=== PATIENT | male | born 1935 | race Asian ===

== ENCOUNTER → 2017-12-22 | Outpatient (CLI) | payer MEDICARE ==
[~2017-12-22] MED LIST: APIX5TAB PO; DIGO250T PO; HYDR1POW19 PO; LISI-420 PO; METO50TA6 PO
== END | disposition home or self-care (01) ==
LOC: CFH 14:05
PROVIDERS: ATTEND Internal Medicine Cardiovascular Disease
DX: I10 Essential (primary) hypertension (principal); I35.8 Other nonrheumatic aortic valve disorders
CPT/HCPCS: 93306

== ENCOUNTER 2018-01-06 16:37 | Emergency (ER) | payer MEDICARE ==
[~2018-01-06] VITALS: Ht 162.6 cm; Wt 53.0 kg
[2018-01-06 19:19] LABS: BASOPHILS # (AUTO) 0.02 x10^3/uL (0-0.1); BASOPHILS % (AUTO) 0 % (0-1); EOSINOPHILS # (AUTO) 0.83 x10^3/uL (0-0.4); EOSINOPHILS % (AUTO) 10 % (1-7); LYMPHOCYTES # (AUTO) 0.77 x10^3/uL (1-3.4); LYMPHOCYTES % (AUTO) 9 % (22-44); MD NO; MEAN CORPUSCULAR HEMOGLOBIN 31.6 pg (27.5-34.5); MEAN CORPUSCULAR HGB CONC 33.5 g/dL (33.2-36.2); MEAN CORPUSCULAR VOLUME 94.1 fL (81-97); MEAN PLATELET VOLUME 6.9 fL (7.4-10.4); MONOCYTES # (AUTO) 0.77 x10^3/uL (0.2-0.8); MONOCYTES % (AUTO) 9 % (2-9); NEUTROPHILS # (AUTO) 6.31 x10^3/uL (1.8-6.8); NEUTROPHILS % (AUTO) 73 % (42-75); PLATELET COUNT 250 x10^3/uL (130-400); RED BLOOD COUNT 4.79 x10^6/uL (4.38-5.82)
[2018-01-06 19:31] LABS: ALANINE AMINOTRANSFERASE 25 U/L (12-78); ALBUMIN 2.5 g/dL (3.4-5.0); ANION GAP 10 mmol/L (5-15); CALCIUM 8.2 mg/dL (8.5-10.1); CHLORIDE 105 mmol/L (98-107); CREATININE 1.66 mg/dL (0.7-1.3)
[2018-01-06 19:33] LABS: ALKALINE PHOSPHATASE 44 U/L (45-117); BILIRUBIN,TOTAL 0.3 mg/dL (0.2-1.0); TOTAL PROTEIN 5.3 g/dL (6.4-8.2)
[2018-01-06 20:35] LABS: MICROSCOPIC INDICATED
[2018-01-06 20:38] LABS: CULTURE INDICATED? YES
[2018-01-06 21:52] VITALS: BP 131/48
== END 2018-01-06 21:54 | disposition home or self-care (01) ==
LOC: ED 20:19
DX: R60.0 Localized edema (principal); L30.8 Other specified dermatitis; I10 Essential (primary) hypertension; I48.91 Unspecified atrial fibrillation
CPT/HCPCS: 36415; 71045; 80053; 81001; 83880; 84145; 85025; 87086; 93005; 99285

== ENCOUNTER → 2018-01-27 | Outpatient (CLI) | payer MEDICARE ==
[~2018-01-27] MED LIST changes: +ASPI-650 PO; +BETA15CR5 TD; +CEFD300C37 PO; +DOXY100T PO; +FURO20TA3 PO; +HYDR-3342 PO; +LISI40TA PO; +METO25TA35 PO; +POTA20TA6 PO; +PRED10TA14 PO
[2018-01-27 15:59] LABS: ALANINE AMINOTRANSFERASE 32 U/L (12-78); ALBUMIN 2.3 g/dL (3.4-5.0); ANION GAP 7 mmol/L (5-15); CALCIUM 7.6 mg/dL (8.5-10.1); CHLORIDE 109 mmol/L (98-107); CREATININE 1.22 mg/dL (0.7-1.3)
[2018-01-27 16:00] LABS: MEAN CORPUSCULAR HEMOGLOBIN 30.7 pg (27.5-34.5); MEAN CORPUSCULAR HGB CONC 33.1 g/dL (33.2-36.2); MEAN CORPUSCULAR VOLUME 92.9 fL (81-97); MEAN PLATELET VOLUME 7.3 fL (7.4-10.4); PLATELET COUNT 289 x10^3/uL (130-400); RED BLOOD COUNT 3.84 x10^6/uL (4.38-5.82); RED CELL DISTRIBUTION WIDTH 13.8 % (9.4-14.8)
[2018-01-27 16:01] LABS: ALKALINE PHOSPHATASE 48 U/L (45-117); BILIRUBIN,TOTAL 0.3 mg/dL (0.2-1.0); TOTAL PROTEIN 5.2 g/dL (6.4-8.2)
[2018-01-27 16:04] LABS: CREATININE 1.22 mg/dL (0.7-1.3)
[2018-01-27 16:46] LABS: MD YES
[2018-01-27 16:50] LABS: <PLATELET ESTIMATE> ADEQUATE; <RBC MORPHOLOGY> NORMAL; EOS#(MANUAL) 2.52 x10^3/uL (0.0-0.4); EOS% (MANUAL) 28 % (1-7); LYMPH#(MANUAL) 1.26 x10^3/uL (1-3.4); LYMPHS% (MANUAL) 14 % (22-44); MONOS#(MANUAL) 0.36 x10^3/uL (0.3-2.7); MONOS% (MANUAL) 4 % (2-9); SEG#(MANUAL) 4.86 x10^3/uL (1.8-6.8); SEGS% (MANUAL) 54 % (42-75)
[2018-01-27 16:51] LABS: <PLT MORPHOLOGY> NORMAL PLT MORPH
== END | disposition home or self-care (01) ==
LOC: LAB 15:16
PROVIDERS: ATTEND Dermatology
DX: L53.8 Other specified erythematous conditions (principal)
CPT/HCPCS: 36415; 80053; 82565; 85025

== ENCOUNTER 2018-01-30 09:26 | Inpatient (IN) | payer MEDICARE ==
[~2018-01-30] VITALS: Ht 162.6 cm; Wt 57.4 kg
[~2018-01-30 09:26] MED LIST changes: -ASPI-650 PO; -BETA15CR5 TD; -CEFD300C37 PO; -DOXY100T PO; -FURO20TA3 PO; -HYDR-3342 PO; -LISI40TA PO; -METO25TA35 PO; -POTA20TA6 PO; -PRED10TA14 PO
[2018-01-30] MEDS ORDERED: SODIUM CHLORIDE FLUSH 10ML SYR IVF ONE (09:30)
[2018-01-30] MEDS: NITROGLYCERIN/D5W PMX 250 ML IV SCH (09:48)
[2018-01-30] MEDS ORDERED: NITROGLYCERIN SINGLE TAB 0.4 MG SL ONE (09:53)
[2018-01-30] MEDS ORDERED: PLEASE ENTER HEIGHT AND WEIGHT MC SCH (10:00)
[2018-01-30] MEDS ORDERED: NITROGLYCERIN SINGLE TAB 0.4 MG SL PRN (10:00)
[2018-01-30 10:07] LABS: MEAN CORPUSCULAR HEMOGLOBIN 30.7 pg (27.5-34.5); MEAN CORPUSCULAR HGB CONC 33.4 g/dL (33.2-36.2); MEAN CORPUSCULAR VOLUME 91.8 fL (81-97); MEAN PLATELET VOLUME 7.4 fL (7.4-10.4); PLATELET COUNT 319 x10^3/uL (130-400); RED BLOOD COUNT 3.85 x10^6/uL (4.38-5.82); RED CELL DISTRIBUTION WIDTH 14.2 % (9.4-14.8)
[2018-01-30] MEDS ORDERED: NITROGLYCERIN/D5W PMX 250 ML ONE (10:12)
[2018-01-30 10:14] LABS: INTERNATIONAL NORMALIZED RATIO 1.01 (0.93-1.1); PROTHROMBIN TIME 10.5 Seconds (9.6-11.5)
[2018-01-30 10:16] LABS: ALANINE AMINOTRANSFERASE 96 U/L (12-78); ALBUMIN 2.8 g/dL (3.4-5.0); ANION GAP 8 mmol/L (5-15); CALCIUM 8.1 mg/dL (8.5-10.1); CHLORIDE 103 mmol/L (98-107); CREATININE 1.31 mg/dL (0.7-1.3)
[2018-01-30 10:20] LABS: ALKALINE PHOSPHATASE 69 U/L (45-117); BILIRUBIN,TOTAL 0.3 mg/dL (0.2-1.0); TOTAL PROTEIN 6.1 g/dL (6.4-8.2); TROPONIN I 0.043 ng/mL (0.000-0.045)
[2018-01-30 10:21] LABS: BASOPHILS # (AUTO) 0.03 x10^3/uL (0-0.1); BASOPHILS % (AUTO) 0 % (0-1); EOSINOPHILS # (AUTO) 0.08 x10^3/uL (0-0.4); EOSINOPHILS % (AUTO) 1 % (1-7); LYMPHOCYTES # (AUTO) 2.53 x10^3/uL (1-3.4); LYMPHOCYTES % (AUTO) 19 % (22-44); MD SCAN; MONOCYTES % (AUTO) 12 % (2-9); NEUTROPHILS # (AUTO) 9.07 x10^3/uL (1.8-6.8); NEUTROPHILS % (AUTO) 68 % (42-75)
[2018-01-30] MEDS ORDERED: FUROSEMIDE 40 MG/4 ML ONE (11:28)
[2018-01-30] MEDS ORDERED: FUROSEMIDE 40 MG/4 ML IV ONE (11:30)
[2018-01-30] MEDS ORDERED: HYDR-3342 PO (11:43)
[2018-01-30] MEDS ORDERED: ASPI-650 PO (11:43)
[2018-01-30] MEDS ORDERED: NITROGLYCERIN OINT 2%, 1GM TP ONE ×2 (11:53→12:00)
[2018-01-30] MEDS ORDERED: PRED10TA14 PO (12:26)
[2018-01-30] MEDS ORDERED: METO25TA35 PO (12:26)
[2018-01-30] MEDS ORDERED: LISI40TA PO (12:26)
[2018-01-30] MEDS ORDERED: ACETAMINOPHEN 325 MG TABLET PO PRN (12:30)
[2018-01-30] MEDS ORDERED: ONDANSETRON 2MG/ML, 2ML IVPush PRN (12:30)
[2018-01-30] MEDS ORDERED: LABETALOL 5MG/ML, 20ML IVPush PRN (12:30)
[2018-01-30] MEDS ORDERED: TEMPLATE NON-FORMULARY MED. (Prednisone** 10 MG) PO SCH (13:00)
[2018-01-30] MEDS ORDERED: OMNIPAQUE 350 MG/ML, 100ML BOTTLE ONE (13:27)
[2018-01-30] MEDS ORDERED: PREDNISONE TAPER MC SCH (14:00)
[2018-01-30 14:26] VITALS: BP 161/70
[2018-01-30] MEDS ORDERED: BETA15CR5 TD (14:39)
[2018-01-30] MEDS ORDERED: prednisOLONE 15 MG/5 ML ORAL SOLN PO ONE (15:00)
[2018-01-30] MEDS: CEFTRIAXONE 1,000 MG in SODIUM CHLORIDE 0.9% 50 ML IV SCH (15:06)
[2018-01-30] MEDS: METOPROLOL TARTRATE 25 MG TABLET PO SCH ×2 (15:15→20:56)
[2018-01-30] MEDS: LISINOPRIL 20 MG TABLET PO SCH ×2 (15:16→20:56)
[2018-01-30] MEDS: HEPARIN 5,000 UNITS/ML, 1ML SQ SCH ×2 (15:16→20:56)
[2018-01-30] MEDS: DOXYCYCLINE 100 MG in DEXTROSE 5% 250 ML IV SCH (15:58)
[2018-01-30] MEDS: FUROSEMIDE 20 MG/2 ML IV SCH (17:03)
[2018-01-30 19:41] VITALS: BP 161/79
[2018-01-30] MEDS: SODIUM CHLORIDE FLUSH 10ML SYR IVF SCH (20:56)
[2018-01-30] MEDS ORDERED: METOPROLOL TARTRATE 25 MG TABLET PO SCH (21:00)
[2018-01-30] MEDS ORDERED: LISINOPRIL 20 MG TABLET PO SCH (21:00)
[2018-01-30 21:13] LABS: TROPONIN I 0.094 ng/mL (0.000-0.045)
[2018-01-31] VITALS (7 sets, daily range): BP systolic 144–182; BP diastolic 64–85
[2018-01-31] MEDS: DOXYCYCLINE 100 MG in DEXTROSE 5% 250 ML IV SCH ×2 (01:25→13:17)
[2018-01-31] MEDS: HEPARIN 5,000 UNITS/ML, 1ML SQ SCH ×3 (05:26→20:33)
[2018-01-31] MEDS: NITROGLYCERIN/D5W PMX 250 ML IV SCH (05:26)
[2018-01-31 05:46] LABS: BASOPHILS # (AUTO) 0.01 x10^3/uL (0-0.1); BASOPHILS % (AUTO) 0 % (0-1); EOSINOPHILS % (AUTO) 0 % (1-7); LYMPHOCYTES # (AUTO) 0.97 x10^3/uL (1-3.4); LYMPHOCYTES % (AUTO) 11 % (22-44); MD NO; MEAN CORPUSCULAR HEMOGLOBIN 31.1 pg (27.5-34.5); MEAN CORPUSCULAR HGB CONC 33.5 g/dL (33.2-36.2); MEAN CORPUSCULAR VOLUME 92.7 fL (81-97); MEAN PLATELET VOLUME 7.8 fL (7.4-10.4); MONOCYTES # (AUTO) 0.71 x10^3/uL (0.2-0.8); MONOCYTES % (AUTO) 8 % (2-9); NEUTROPHILS % (AUTO) 81 % (42-75); PLATELET COUNT 257 x10^3/uL (130-400); RED CELL DISTRIBUTION WIDTH 13.9 % (9.4-14.8)
[2018-01-31 05:54] LABS: ANION GAP 7 mmol/L (5-15); CALCIUM 7.2 mg/dL (8.5-10.1); CHLORIDE 100 mmol/L (98-107)
[2018-01-31] MEDS: FUROSEMIDE 20 MG/2 ML IV SCH (08:04)
[2018-01-31] MEDS: POTASSIUM CHLORIDE 20 MEQ PACKET PO SCH (08:04)
[2018-01-31] MEDS: LISINOPRIL 20 MG TABLET PO SCH ×2 (08:05→20:35)
[2018-01-31] MEDS: SODIUM CHLORIDE FLUSH 10ML SYR IVF SCH ×2 (08:05→20:34)
[2018-01-31] MEDS: ASPIRIN 325 MG TABLET EC PO SCH (08:06)
[2018-01-31] MEDS: METOPROLOL TARTRATE 25 MG TABLET PO SCH ×2 (08:06→20:34)
[2018-01-31] MEDS ORDERED: [UNRECOGNIZED DRUG - OTHER] TP PRN (11:30)
[2018-01-31] MEDS ORDERED: FLUOCINOLONE ACETONIDE OIL TP PRN (11:30)
[2018-01-31] MEDS: CEFTRIAXONE 1,000 MG in SODIUM CHLORIDE 0.9% 50 ML IV SCH (12:28)
[2018-01-31] MEDS: FUROSEMIDE 20 MG TABLET PO SCH (17:15)
[2018-02-01] MEDS: DOXYCYCLINE 100 MG in DEXTROSE 5% 250 ML IV SCH ×2 (01:15→14:52)
[2018-02-01 02:12] VITALS: BP 160/75
[2018-02-01] MEDS: HEPARIN 5,000 UNITS/ML, 1ML SQ SCH ×2 (04:41→12:30)
[2018-02-01 05:32] LABS: BASOPHILS # (AUTO) 0.04 x10^3/uL (0-0.1); BASOPHILS % (AUTO) 0 % (0-1); EOSINOPHILS # (AUTO) 0.07 x10^3/uL (0-0.4); EOSINOPHILS % (AUTO) 1 % (1-7); LYMPHOCYTES % (AUTO) 20 % (22-44); MD NO; MEAN CORPUSCULAR HEMOGLOBIN 31.4 pg (27.5-34.5); MEAN CORPUSCULAR HGB CONC 33.6 g/dL (33.2-36.2); MEAN CORPUSCULAR VOLUME 93.3 fL (81-97); MEAN PLATELET VOLUME 8.1 fL (7.4-10.4); MONOCYTES # (AUTO) 1.43 x10^3/uL (0.2-0.8); MONOCYTES % (AUTO) 13 % (2-9); NEUTROPHILS # (AUTO) 7.57 x10^3/uL (1.8-6.8); NEUTROPHILS % (AUTO) 67 % (42-75); PLATELET COUNT 246 x10^3/uL (130-400); RED BLOOD COUNT 3.35 x10^6/uL (4.38-5.82); RED CELL DISTRIBUTION WIDTH 13.7 % (9.4-14.8)
[2018-02-01 05:39] LABS: ALBUMIN 2.2 g/dL (3.4-5.0); ANION GAP 9 mmol/L (5-15); CALCIUM 7.4 mg/dL (8.5-10.1); CHLORIDE 101 mmol/L (98-107); CREATININE 1.37 mg/dL (0.7-1.3)
[2018-02-01 05:41] LABS: CHOL/HDL RATIO 1.9; CHOLESTEROL, TOTAL 125 mg/dL (140-239); HDL CHOL % 52 % (26-37); HDL CHOLESTEROL (DIRECT) 65 mg/dL (40-60); LDL CHOLESTEROL,CALCULATED 48 mg/dL (54-169); LDL/HDL RATIO 0.7 (0.5-3.0); TRIGLYCERIDES 62 mg/dL (50-200); VLDL CHOLESTEROL 12 mg/dL (0-25)
[2018-02-01 05:46] LABS: HEMOGLOBIN A1C 7.3 % (4.2-6.3)
[2018-02-01 07:48] VITALS: BP 172/80
[2018-02-01] MEDS: POTASSIUM CHLORIDE 20 MEQ PACKET PO SCH (08:00)
[2018-02-01] MEDS: METOPROLOL TARTRATE 25 MG TABLET PO SCH (08:00)
[2018-02-01] MEDS: ASPIRIN 325 MG TABLET EC PO SCH (08:01)
[2018-02-01] MEDS: FUROSEMIDE 20 MG TABLET PO SCH (08:01)
[2018-02-01] MEDS: SODIUM CHLORIDE FLUSH 10ML SYR IVF SCH (08:03)
[2018-02-01] MEDS: LISINOPRIL 20 MG TABLET PO SCH (08:10)
[2018-02-01] MEDS ORDERED: REGADENOSON 0.4 MG/5 ML SYRINGE ONE (08:16)
[2018-02-01 12:28] VITALS: BP 155/80
[2018-02-01] MEDS ORDERED: CEFD300C37 PO (14:14)
[2018-02-01] MEDS ORDERED: DOXY100T PO (14:14)
[2018-02-01] MEDS ORDERED: POTA20TA6 PO (14:14)
[2018-02-01] MEDS ORDERED: FURO20TA3 PO (14:14)
[2018-02-01] MEDS ORDERED: HYDR-3342 PO (14:14)
[2018-02-01] MEDS: CEFTRIAXONE 1,000 MG in SODIUM CHLORIDE 0.9% 50 ML IV SCH (14:51)
== END 2018-02-01 16:40 | disposition home health service (06) | DRG 189 ==
LOC: ED 11:55 → EDIP 12:05 → 5SO 13:43 → DCLOUNGE 02-01 16:06
PROVIDERS: ADMIT Hospitalist; ATTEND Hospitalist
DX: J96.01 Acute respiratory failure with hypoxia (principal); J18.9 Pneumonia, unspecified organism; I50.31 Acute diastolic (congestive) heart failure; I13.0 Hypertensive heart and chronic kidney disease with heart failure and stage 1 through stage 4 chronic kidney disease, or unspecified chronic kidney disease; N17.9 Acute kidney failure, unspecified; D68.69 Other thrombophilia; E44.0 Moderate protein-calorie malnutrition; E11.22 Type 2 diabetes mellitus with diabetic chronic kidney disease; Z66 Do not resuscitate; N18.9 Chronic kidney disease, unspecified; R74.0 Nonspecific elevation of levels of transaminase and lactic acid dehydrogenase [LDH]; I48.0 Paroxysmal atrial fibrillation; R74.8 Abnormal levels of other serum enzymes; R21 Rash and other nonspecific skin eruption; D64.9 Anemia, unspecified; Z79.84 Long term (current) use of oral hypoglycemic drugs; Z82.49 Family history of ischemic heart disease and other diseases of the circulatory system; Z83.3 Family history of diabetes mellitus; Z79.899 Other long term (current) drug therapy; Z79.1 Long term (current) use of non-steroidal anti-inflammatories (NSAID); Z68.21 Body mass index [BMI] 21.0-21.9, adult; Z88.8 Allergy status to other drugs, medicaments and biological substances
CPT/HCPCS: 36415; 71045; 71275; 78452; 80048; 80053; 80061; 82040; 83036; 83880; 84484; 85025; 85610; 85730; 87040; 93005; 93017; 93970; 96374; 99291; J0696; J1644; J1940; J2785; J7060; Q9967; A9502; C9898; J7512

== ENCOUNTER → 2018-04-06 | Outpatient (CLI) | payer MEDICARE ==
[~2018-04-06] MED LIST changes: +ASPI-650 PO; +BETA15CR5 TD; +CEFD300C37 PO; +DOXY100T PO; +FURO20TA3 PO; +HYDR-3342 PO; +LISI40TA PO; +METO25TA35 PO; +POTA20TA6 PO; +PRED10TA14 PO
[2018-04-06 12:37] LABS: ANION GAP 6 mmol/L (5-15); CALCIUM 8.5 mg/dL (8.5-10.1); CHLORIDE 105 mmol/L (98-107); CREATININE 1.27 mg/dL (0.7-1.3)
== END | disposition home or self-care (01) ==
LOC: CFH 09:55
PROVIDERS: ATTEND Internal Medicine Cardiovascular Disease
DX: I50.9 Heart failure, unspecified (principal); E11.9 Type 2 diabetes mellitus without complications
CPT/HCPCS: 36415; 80048; 83880

== ENCOUNTER → 2018-07-26 | Outpatient (CLI) | payer MEDICARE ==
[2018-07-26 15:39] LABS: BASOPHILS # (AUTO) 0.07 x10^3/uL (0-0.1); BASOPHILS % (AUTO) 1 % (0-1); EOSINOPHILS % (AUTO) 2 % (1-7); LYMPHOCYTES # (AUTO) 1.14 x10^3/uL (1-3.4); LYMPHOCYTES % (AUTO) 20 % (22-44); MD NO; MEAN CORPUSCULAR HEMOGLOBIN 30.7 pg (27.5-34.5); MEAN CORPUSCULAR HGB CONC 32.7 g/dL (33.2-36.2); MEAN CORPUSCULAR VOLUME 93.8 fL (81-97); MEAN PLATELET VOLUME 7.7 fL (7.4-10.4); MONOCYTES # (AUTO) 0.71 x10^3/uL (0.2-0.8); MONOCYTES % (AUTO) 13 % (2-9); NEUTROPHILS # (AUTO) 3.59 x10^3/uL (1.8-6.8); NEUTROPHILS % (AUTO) 64 % (42-75); PLATELET COUNT 198 x10^3/uL (130-400); RED BLOOD COUNT 4.03 x10^6/uL (4.38-5.82); RED CELL DISTRIBUTION WIDTH 14.4 % (9.4-14.8)
[2018-07-26 16:04] LABS: HEMOGLOBIN A1C 6.4 % (4.2-6.3)
[2018-07-26 16:16] LABS: ALANINE AMINOTRANSFERASE 19 U/L (12-78); ALBUMIN 3.5 g/dL (3.4-5.0); ANION GAP 6 mmol/L (5-15); CALCIUM 8.9 mg/dL (8.5-10.1); CHLORIDE 104 mmol/L (98-107); CHOLESTEROL, TOTAL 114 mg/dL (140-239); CREATININE 1.32 mg/dL (0.7-1.3); TRIGLYCERIDES 46 mg/dL (50-200); VLDL CHOLESTEROL 9 mg/dL (0-25)
[2018-07-26 16:19] LABS: ALKALINE PHOSPHATASE 65 U/L (45-117); BILIRUBIN,TOTAL 0.3 mg/dL (0.2-1.0); CHOL/HDL RATIO 1.8; HDL CHOL % 55 % (26-37); HDL CHOLESTEROL (DIRECT) 63 mg/dL (40-60); LDL CHOLESTEROL,CALCULATED 42 mg/dL (54-169); LDL/HDL RATIO 0.7 (0.5-3.0); TOTAL PROTEIN 6.3 g/dL (6.4-8.2)
== END | disposition home or self-care (01) ==
LOC: CFH 14:29
PROVIDERS: ATTEND Family Medicine
DX: I12.9 Hypertensive chronic kidney disease with stage 1 through stage 4 chronic kidney disease, or unspecified chronic kidney disease (principal); E11.22 Type 2 diabetes mellitus with diabetic chronic kidney disease; N18.3 Chronic kidney disease, stage 3 (moderate)
CPT/HCPCS: 36415; 80053; 80061; 83036; 84100; 85025

== ENCOUNTER 2019-05-14 13:03 | Emergency (ER) | payer MEDICARE, MEDICAID ==
[~2019-05-14] VITALS: Ht 162.6 cm; Wt 51.0 kg
--- NOTE | 2019-05-14 14:01 | NUR ---
PHYSICIAN GENERAL INTERNAL MEDICINE: PT TO ROOM FROM LOBBY GAIT SLOW AND STEADY
[2019-05-14 14:26] LABS: RAPID INFLUENZA A Negative (Negative); RAPID INFLUENZA B Negative (Negative)
--- NOTE | 2019-05-14 14:29 | NUR ---
BODYACHES AND COUGH FOR 4 DAYS. AWAITING MD GLASS
--- NOTE | 2019-05-14 15:08 | NUR ---
FIRST CONTACT. BLANE SINCLAIR IS DISCHARGING THE PT. FOR THE PRIMARY CARE BLANE ANDERS. PT. WAS GIVEN DISCHARGE INSTRUCTIONS WITH UNDERSTANDING VERBALIZED ALONG WITH WILLINGNESS TO COMPLY. PT. WAS AMBULATORY TO THE DISCHARGE DESK. VSS.
[2019-05-14 15:11] VITALS: BP 154/74
== END 2019-05-14 15:14 ==
LOC: ED 15:03
DX: J20.8 Acute bronchitis due to other specified organisms (principal); I10 Essential (primary) hypertension; I48.91 Unspecified atrial fibrillation
CPT/HCPCS: 71046; 87081; 87400; 87880; 99284